=== PATIENT | male | born 1955 | race Caucasian/White ===

== ENCOUNTER → 2021-08-14 14:21 | Outpatient (CLI) | payer BC, SELFPAY ==
[2021-08-14 15:18] LABS: COVID19 -Nasal RAPID POSITIVE (Negative)
== END ==
PROVIDERS: PCP Internal Medicine; Referring Provider Physician Assistant; Visit Provider Physician Assistant
DX: U07.1 COVID-19 (principal); Z20.822 Contact with and (suspected) exposure to COVID-19; R51.9 Headache, unspecified; R50.9 Fever, unspecified; R09.89 Other specified symptoms and signs involving the circulatory and respiratory systems; R05.9 Cough, unspecified
CPT/HCPCS: 87635

== ENCOUNTER → 2021-08-28 07:52 | Outpatient (CLI) | payer BC, SELFPAY ==
[2021-08-28 09:00] LABS: Add Manual Diff / Slide Review NO; Basophils Absolute Auto 0 /uL (0-100); Basophils Percent Auto 0.4 % (0-2); Eosinophils Absolute Auto 200 /uL (0-450); Eosinophils Percent Auto 3.8 % (2-4); Hematocrit 39.6 % (41-53); Hemoglobin 13.9 g/dL (13.5-17.5); Lymphocytes Absolute Auto 1200 /uL (1100-4500); Lymphocytes Percent Auto 23.8 % (25-40); Mean Corpuscular Hemoglobin 32.1 PG (26-34); Mean Corpuscular Volume 91.7 fL (80-100); Monocytes Absolute Auto 400 /uL (0-900); Monocytes Percent Auto 8.9 % (3-14); Neutrophils Absolute Auto 3100 /uL (1500-7000); Neutrophils Percent Auto 63.1 % (50-75); Platelet Count 268 X10^3/uL (150-400); Red Blood Cell Count 4.32 X10^6/uL (4.5-5.9); Red Cell Distribution Width 12.8 % (11.6-14.8); White Blood Cell Count 4.9 X10^3/uL (4.5-11.0)
[2021-08-28 09:33] LABS: Alanine Aminotransferase 18 IU/L (<50); Albumin 4.4 g/dL (3.5-5.0); Albumin Globulin Ratio 1.8 (1.0-2.8); Alkaline Phosphatase 58 U/L (38-126); Aspartate Aminotransferase 21 IU/L (17-59); Bilirubin Total 0.6 mg/dL (0.2-1.3); Blood Urea Nitrogen 17 mg/dL (9-20); Calcium 9.8 mg/dL (8.4-10.2); Carbon Dioxide 27 mmol/L (22-32); Chloride 110 mmol/L (98-107); Cholesterol 160 mg/dL (140-199); Estimated Glomerular Filt Rate > 60.0 mL/min (>60); Globulin 2.5 g/dL (1.7-4.1); Glucose 101 mg/dL (80-110); HDL Cholesterol 35 mg/dL (40-60); HEMOLYSIS < 15 (0-50); LDL Cholesterol Calculated 89 mg/dL (<100); Potassium 3.7 mmol/L (3.4-5.1); Sodium 145 mmol/L (137-145); Total Protein 6.9 g/dL (6.3-8.2); Triglycerides 181 mg/dL (35-150)
[2021-08-28 09:58] LABS: Prostate Specific Antigen Scrn 2.64 ng/mL (0.1-4.0)
[2021-09-02 12:40] LABS: Chromogranin A, Serum 58.3 ng/mL (0.0-101.8)
[2021-09-05 10:29] LABS: Serotonin 119 ng/mL (21-321)
== END ==
PROVIDERS: Internal Medicine Hematology & Oncology; PCP Internal Medicine; Referring Provider Internal Medicine; Visit Provider Internal Medicine
DX: C7A.8 Other malignant neuroendocrine tumors (principal); M54.50 Low back pain, unspecified; G89.29 Other chronic pain; N40.1 Benign prostatic hyperplasia with lower urinary tract symptoms; N13.8 Other obstructive and reflux uropathy; Z13.220 Encounter for screening for lipoid disorders; Z13.1 Encounter for screening for diabetes mellitus; Z13.6 Encounter for screening for cardiovascular disorders
CPT/HCPCS: 36415; 80053; 80061; 84260; 85025; 86316; G0103

== ENCOUNTER → 2022-01-02 10:33 | Outpatient (CLI) | payer BC, SELFPAY ==
--- NOTE | 2022-01-02 10:35 | DI.RAD.S_ITS ---
PROCEDURE: XR LUMBAR SPINE MIN 4V INDICATIONS: BACK PAIN TECHNIQUE: 5 views of the lumbar spine acquired, including flexion and extension views. COMPARISON: None. FINDINGS: Bones: 5 nonrib-bearing vertebrae are present. There is normal bony alignment. No vertebral body compression fractures. No suspicious bony lesions. There are multilevel degenerative changes with anterior osteophytes. There is facet arthrosis in the lower lumbar spine. Disc space narrowing is present at L4-5. Endplate degenerative changes are present L1-2. Soft tissues: Overlying bowel gas pattern is normal. No suspicious soft tissue calcifications. Flexion/extension: There is normal range of motion, with preserved normal alignment. IMPRESSION: 1. Degenerative disc disease at L4-5 and L1-2. 2. 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 Dictated by: Trell Alicia M.D. on 01/02/2022 at 12:50 Approved by: Trell Alicia M.D. on 01/02/2022 at 12:53
== END ==
PROVIDERS: PCP Internal Medicine; Referring Provider Physical Medicine & Rehabilitation; Visit Provider Physical Medicine & Rehabilitation
DX: M47.816 Spondylosis without myelopathy or radiculopathy, lumbar region (principal); M51.36 Other intervertebral disc degeneration, lumbar region; M54.9 Dorsalgia, unspecified
CPT/HCPCS: 72110

== ENCOUNTER → 2022-01-09 07:59 | Outpatient (CLI) | payer BC, SELFPAY ==
--- NOTE | 2022-01-09 08:00 | DI.MRI.S_ITS ---
PROCEDURE: MR LUMBAR SPINE WO CON INDICATIONS: lumbar radiculopathy TECHNIQUE: Noncontrast sagittal T1 spin echo and T2 fast echo, sagittal STIR, and T2 fast spin echo through the lumbar spine. In cases with scoliosis, additional coronal T2 fast spin echo may be performed. COMPARISON: [facility], CR, XR LUMBAR SPINE MIN 4V, 01/02/2022, 10:24. FINDINGS: Image quality: Excellent. Alignment and Curvature: There is normal bony alignment. Bone Marrow: Marrow is of normal overall signal. No acute vertebral body compression fractures. Spinal Cord: Conus medullaris terminates at the L1-L2 level. Visualized cord demonstrates normal signal and size. Paraspinous Soft Tissues: No paravertebral masses. T12-L1: No canal stenosis or foraminal stenosis. L1-L2: Mild facet hypertrophy. Minimal disc bulge. No canal stenosis or foraminal stenosis. L2-L3: Minimal disc bulge. Mild facet hypertrophy. No canal stenosis or foraminal stenosis. L3-L4: Disc bulge. Facet hypertrophy. Mild canal stenosis. Mild bilateral foraminal stenosis. L4-L5: Mild disc height loss. Diffuse posterior disc bulge with superimposed mild left paracentral disc protrusion, with bilateral facet hypertrophy, with moderate central canal stenosis and mild posterior deviation of the left L5 nerve root in the left lateral recess. There is a far right lateral disc protrusion which posteriorly deviates the right L4 nerve root far laterally. At the right level of the foramen, there is moderate to severe foraminal narrowing with foraminal right L4 nerve root impingement. There is moderate left foraminal narrowing with flattening deformity on the exiting left L4 nerve root. L5-S1: Diffuse disc bulge. No canal stenosis. Mild bilateral foraminal stenosis. Foraminal disc material abuts the bilateral exiting L5 nerve roots. IMPRESSION: 1. Findings are most significant at L4-L5. There is moderate central canal stenosis. A mild superimposed left paracentral disc protrusion deviates the left L5 nerve root slightly in the left lateral recess. There is moderate to severe right foraminal narrowing with right foraminal L4 nerve root impingement. There is a far right lateral disc protrusion which posteriorly deviates the right L4 nerve root far laterally. 2. There is mild canal stenosis at L3-L4. 3. Multilevel facet arthropathy. Dictated by: Will Zazueta M.D. on 01/09/2022 at 9:05 Approved by: Will Zazueta M.D. on 01/09/2022 at 9:19
== END ==
PROVIDERS: PCP Internal Medicine; Referring Provider Physical Medicine & Rehabilitation; Visit Provider Physical Medicine & Rehabilitation
DX: M48.061 Spinal stenosis, lumbar region without neurogenic claudication (principal); M48.07 Spinal stenosis, lumbosacral region; M51.16 Intervertebral disc disorders with radiculopathy, lumbar region; M47.26 Other spondylosis with radiculopathy, lumbar region
CPT/HCPCS: 72148

== ENCOUNTER → 2022-09-29 17:13 | Outpatient (CLI) | payer BC, SELFPAY ==
[2022-09-29 18:25] LABS: Free T4, Direct Thyroxine 0.91 ng/dL (0.78-2.19)
[2022-09-29 18:39] LABS: Thyroid Stimulating Hormone 1.99 uIU/mL (0.47-4.68)
[2022-09-29 18:40] LABS: Prostate Specific Antigen Scrn 1.96 ng/mL (0.1-4.0)
[2022-09-29 19:25] LABS: Erythrocyte Sedimentation Rate 11 MM/HR (0-15)
== END ==
PROVIDERS: PCP Internal Medicine; Referring Provider Internal Medicine; Visit Provider Internal Medicine
DX: C7A.8 Other malignant neuroendocrine tumors (principal); R53.83 Other fatigue; Z12.5 Encounter for screening for malignant neoplasm of prostate
CPT/HCPCS: 36415; 84439; 84443; 85651; G0103